=== PATIENT | female | born 1940 | race Caucasian/White ===

== ENCOUNTER 2021-09-22 13:14 | Emergency (ER) | payer MEDICARE, BC ==
[2021-09-22 13:47] VITALS: BP 158/71; PULSE 67
[2021-09-22] MEDS ORDERED: Sodium Chloride 0.9% 10 ML Syringe FLUSH PRN (13:51)
== END 2021-09-22 16:05 | disposition home or self-care (01) ==
LOC: JD.ED 13:14
DX: R42 Dizziness and giddiness (principal); I10 Essential (primary) hypertension; M19.90 Unspecified osteoarthritis, unspecified site; Z79.82 Long term (current) use of aspirin
CPT/HCPCS: 36415; 70450; 80053; 81001; 83735; 84484; 85025; 93005; 99284; A9270; 93010; 99285